=== PATIENT | male | born 1940 | race African-American/Black ===

== ENCOUNTER 2017-05-26 00:56 | Emergency (ER) | payer MEDICARE ==
[~2017-05-26] VITALS: Ht 177.8 cm; Wt 79.4 kg
[~2017-05-26 00:56] MED LIST: AMLO10TA2 PO; HYDR-2758 PO; SITA1TAB11 PO; THEO300T9 PO
--- NOTE | 2017-05-26 01:26 | PHYS DOC ---
Past Medical History Past Medical History: GERD Past Surgical History: Cholecystectomy Additional Past Surgical Histo: prostate surgery Adult General Chief Complaint Chief Complaint: ABDOMINAL PAIN HPI HPI Patient is a 77 year old male comes in with complaints of found gas discomfort in his abdomen that feels like is going up in the middle his chest. It feels similar to past episodes of reflux but he hasn't had that are in a long time. Patient denies any pain of any kind. Patient denies any dysuria or change in bowel movements. Patient denies any vomiting, rashes, fevers, chills. No chest pain or back pain or abdominal pain or leg pain. Patient was seen by his PCP today and evaluated at the office where he received an examining some blood work he was told everything was fine. Review of Systems Review of Systems Constitutional: Denies fever or chills [] HENT: Denies pain Respiratory: Denies cough or shortness of breath [] Cardiovascular: No pain GI: Denies abdominal pain, nausea, vomiting, bloody stools or diarrhea [] : Denies dysuria or hematuria [] Musculoskeletal: Denies back pain or joint pain [] Integument: Denies rash or skin lesions [] Neurologic: Denies headache, focal weakness or sensory changes [] Endocrine: Denies polyuria or polydipsia [] Current Medications Current Medications Current Medications Medications (Trade) Dose Ordered Sig/Ben Start Time Stop Time Status Last Admin Dose Admin Sucralfate (Carafate) 1 gm 1X ONCE 05/26/17 02:45 05/26/17 02:46 DC 05/26/17 03:04 1 GM Allergies Allergies Allergies Coded Allergies Type Severity Reaction Last Updated Verified No Known Drug Allergies 05/17/16 No Physical Exam Physical Exam Constitutional: Well developed, well nourished, no acute distress, non-toxic appearance. [] HENT: Normocephalic, atraumatic, bilateral external ears normal, oropharynx dry , no oral exudates, nose normal. [] Eyes: EOMI, conjunctiva normal, no discharge. [] Neck: Normal range of motion, no tenderness, supple, no stridor. No JVD, no LAD noted, no meningeal signs Cardiovascular:Heart rate regular rhythm, no murmur, equal pulses, normal perfusion Lungs & Thorax: Bilateral breath sounds clear to auscultation, no tachypnea Abdomen: Bowel sounds normal, soft, no tenderness, no masses, no pulsatile masses. [] Skin: Warm, dry, no erythema, no rash. [] Back: No tenderness, no CVA tenderness. [] Extremities: No tenderness, no cyanosis, no DVT ROM intact, no edema. [] Neurologic: Alert and oriented X 3, normal motor function, ambulates with normal gait and without assistance, no focal deficits noted. [] Psychologic: Affect normal, judgement normal, mood normal. [] Current Patient Data Vital Signs Vital Signs Date Time Temp Pulse Resp B/P (MAP) Pulse Ox O2 Delivery O2 Flow Rate FiO2 05/26/17 03:06 74 20 145/80 (101) 100 Room Air 05/26/17 01:15 98.0 98.0 Lab Values Laboratory Tests Test 05/26/17 01:55 05/26/17 03:10 White Blood Count 3.4 x10^3/uL (4.0-11.0) L Red Blood Count 3.03 x10^6/uL (4.30-5.70) L Hemoglobin 11.3 g/dL (13.0-17.5) L Hematocrit 33.5 % (39.0-53.0) L Mean Corpuscular Volume 111 fL (79-100) H Mean Corpuscular Hemoglobin 37 pg (25-35) H Mean Corpuscular Hemoglobin Concent 34 g/dL (31-37) Red Cell Distribution Width 14.1 % (11.5-14.5) Platelet Count 162 x10^3/uL (140-400) Neutrophils (%) (Auto) 45 % (31-73) Lymphocytes (%) (Auto) 39 % (24-48) Monocytes (%) (Auto) 9 % (0-9) Eosinophils (%) (Auto) 6 % (0-3) H Basophils (%) (Auto) 1 % (0-3) Neutrophils # (Auto) 1.6 x10^3uL (1.8-7.7) L Lymphocytes # (Auto) 1.3 x10^3/uL (1.0-4.8) Monocytes # (Auto) 0.3 x10^3/uL (0.0-1.1) Eosinophils # (Auto) 0.2 x10^3/uL (0.0-0.7) Basophils # (Auto) 0.0 x10^3/uL (0.0-0.2) Platelet Estimate Adequate (ADEQUATE) Polychromasia Slight Macrocytosis Mod Sodium Level 137 mmol/L (136-145) Potassium Level 3.7 mmol/L (3.5-5.1) Chloride Level 101 mmol/L (98-107) Carbon Dioxide Level 32 mmol/L (21-32) Anion Gap 4 (6-14) L Blood Urea Nitrogen 13 mg/dL (8-26) Creatinine 1.2 mg/dL (0.7-1.3) Estimated GFR (Cockcroft-Gault) 71.2 BUN/Creatinine Ratio 11 (6-20) Glucose Level 128 mg/dL (70-99) H Calcium Level 8.9 mg/dL (8.5-10.1) Total Bilirubin 0.4 mg/dL (0.2-1.0) Aspartate Amino Transferase (AST) 44 U/L (15-37) H Alanine Aminotransferase (ALT) 40 U/L (16-63) Alkaline Phosphatase 74 U/L (46-116) Troponin I Quantitative < 0.017 ng/mL (0.000-0.055) Total Protein 8.5 g/dL (6.4-8.2) H Albumin 3.8 g/dL (3.4-5.0) Albumin/Globulin Ratio 0.8 (1.0-1.7) L Urine Collection Type Unknown Urine Color Yellow Urine Clarity Clear Urine pH 7.5 Urine Specific [place] <=1.005 Urine Protein Negative mg/dL (NEG-TRACE) Urine Glucose (UA) Negative mg/dL (NEG) Urine Ketones (Stick) Negative mg/dL (NEG) Urine Blood Negative (NEG) Urine Nitrite Negative (NEG) Urine Bilirubin Negative (NEG) Urine Urobilinogen Dipstick 0.2 mg/dL (0.2 mg/dL) Urine Leukocyte Esterase Negative (NEG) Urine RBC Occ /HPF (0-2) Urine WBC 0 /HPF (0-4) Urine Squamous Epithelial Cells Occ /LPF Urine Bacteria 0 /HPF (0-FEW) Laboratory Tests 05/26/17 01:55 Laboratory Tests 05/26/17 01:55 EKG EKG 0148 75, sinus rhythm, no STEMI[] Radiology/Procedures Radiology/Procedures [] Course & Med Decision Making Course & Med Decision Making Pertinent Labs and Imaging studies reviewed. (See chart for details) 0340 pt in nad, agrees to follow up as directed [] James Disclaimer Dragon Disclaimer This electronic medical record was generated, in whole or in part, using a voice recognition dictation system. Departure Departure Impression: Primary Impression: Bloated abdomen Disposition: HOME, SELF-CARE Condition: STABLE Referrals: STEVEN LIVINGSTON MD (PCP) follow up for recheck and re-evaluation in 1-2 days Patient Instructions: Abdominal Pain (Nonspecific) Scripts Sucralfate (CARAFATE) 1 Gm/10 Ml Oral.susp 10 ML PO TID for 5 Days, #1200 ML Prov: Christopher WINTER MD 05/26/17 Christopher WINTER MD May 26, 2017 01:26
[2017-05-26 02:05] LABS: BASO % 1 % (0-3); EOS % 6 % (0-3); HEMATOCRIT 33.5 % (39.0-53.0); HEMOGLOBIN 11.3 g/dL (13.0-17.5); LYMPH # 1.3 x10^3/uL (1.0-4.8); LYMPH % 39 % (24-48); MEAN CORPUSCULAR HEMOGLOBIN 37 pg (25-35); MEAN CORPUSCULAR HGB CONC 34 g/dL (31-37); MEAN CORPUSCULAR VOLUME 111 fL (79-100); MONO % 9 % (0-9); NEUT % 45 % (31-73); PLATELET COUNT 162 x10^3/uL (140-400); RED BLOOD COUNT 3.03 x10^6/uL (4.30-5.70); RED CELL DISTRIBUTION WIDTH 14.1 % (11.5-14.5); WHITE BLOOD COUNT 3.4 x10^3/uL (4.0-11.0)
[2017-05-26 02:16] LABS: CALCIUM 8.9 mg/dL (8.5-10.1); CREATININE 1.2 mg/dL (0.7-1.3); GFR 71.2; POTASSIUM 3.7 mmol/L (3.5-5.1)
[2017-05-26 02:22] LABS: ALBUMIN 3.8 g/dL (3.4-5.0); ALBUMIN/GLOBULIN RATIO 0.8 (1.0-1.7); TOTAL BILIRUBIN 0.4 mg/dL (0.2-1.0); TOTAL PROTEIN 8.5 g/dL (6.4-8.2)
[2017-05-26 02:29] LABS: PLT ESTIMATE ADEQUATE (ADEQUATE)
[2017-05-26 02:30] LABS: POLYCHROMASIA SLIGHT
[2017-05-26] MEDS ORDERED: SUCRALFATE 1 GM/10 ML ORAL.SUSP. PO ONE (02:45)
[2017-05-26 03:22] LABS: BILIRUBIN,URINE NEGATIVE (NEG); GLUCOSE,URINE NEGATIVE (NEG); NITRITE,URINE NEGATIVE (NEG); PH,URINE 7.5; PROTEIN,URINE NEGATIVE (NEG-TRACE); UROBILINOGEN,URINE 0.2 mg/dL (0.2 mg/dL)
[2017-05-26 03:34] LABS: BACTERIA,URINE 0 /HPF (0-FEW); RBC,URINE OCC /HPF (0-2); SQUAMOUS EPITHELIAL CELL,UR OCC /LPF; WBC,URINE 0 /HPF (0-4)
[2017-05-26] MEDS ORDERED: SUCR1ORA5 PO (03:43)
[2017-05-26 03:45] VITALS: BP 128/75
--- NOTE | 2017-05-26 06:24 | EKG ---
[facility] [address] [place] [address] Test Date: 2017-05-26 Test Time: 01:42:09 Pat Name: JEFF VIEIRA Department: Room: Gender: Bioinformatics Support Specialist: : [id number] Requested By: Christopher WINTER Order Number: [id number] Reading MD: Jassi Barr Measurements Intervals [place] Rate: 75 P: 38 UT: 168 QRS: -18 QRSD: 78 T: 35 QT: 390 QTc: 438 Interpretive Statements SINUS RHYTHM Electronically Signed On 06-15-2017 9:16:52 CDT by Jassi Barr
== END 2017-05-26 04:13 | disposition home or self-care (01) ==
LOC: ER 00:56
DX: R14.0 Abdominal distension (gaseous) (principal); K21.9 Gastro-esophageal reflux disease without esophagitis
CPT/HCPCS: 36415; 80053; 81001; 84484; 85025; 93005; 99285-25

== ENCOUNTER → 2017-10-26 | Outpatient (CLI) | payer MEDICARE ==
[~2017-10-26] MED LIST changes: -AMLO10TA2 PO; +CONTRAST GIVEN MC; -HYDR-2758 PO; +IOHEXOL 300 MG/ML 100ML VIAL. IV; -SITA1TAB11 PO; -THEO300T9 PO
== END | disposition home or self-care (01) ==
LOC: CT 10:49
DX: R31.0 Gross hematuria (principal)
CPT/HCPCS: 74178; Q9967

== ENCOUNTER → 2017-11-16 | Day surgery (SDC) | payer MEDICARE ==
[~2017-11-16] MED LIST changes: -CONTRAST GIVEN MC; +DEXAMETHASONE SOD PHOS 20 MG/5 ML VIAL.; +FAMOTIDINE 20 MG/2 ML VIAL; +GLYCOPYRROLATE 1 MG/5 ML VIAL.; -IOHEXOL 300 MG/ML 100ML VIAL. IV; +LIDOCAINE 1% PF 2 ML VIAL. ID; +LIDOCAINE 1% PF 5 ML VIAL.; +MIDAZOLAM HCL/PF 2 MG/2 ML VIAL.; +MORPHINE SULFATE 2 MG/ML DISP.SYRIN. IV; +NEOSTIGMINE 10 MG/10 ML VIAL.; +ONDANSETRON PF 4 MG/2 ML VIAL.; +ONDANSETRON PF 4 MG/2 ML VIAL. IV; +PROCHLORPERAZINE 10 MG/2 ML VIAL. IV; +PROPOFOL 20 ML IV; +ROCURONIUM 50 MG/5 ML VIAL.; +fentaNYL PF VIAL 100 MCG/2 ML VIAL; +fentaNYL PF VIAL 100 MCG/2 ML VIAL IV
[2017-11-16] MEDS: IV RINGERS,LACTATED 1000ML 1,000 ML IV (07:00)
== END | disposition home or self-care (01) ==
LOC: SURG 10:42
DX: C67.9 Malignant neoplasm of bladder, unspecified (principal); I10 Essential (primary) hypertension; J45.909 Unspecified asthma, uncomplicated; E11.9 Type 2 diabetes mellitus without complications; Z87.891 Personal history of nicotine dependence; K21.9 Gastro-esophageal reflux disease without esophagitis; D64.9 Anemia, unspecified; Z85.46 Personal history of malignant neoplasm of prostate; Z98.890 Other specified postprocedural states; Z79.899 Other long term (current) drug therapy
CPT/HCPCS: 51720; 88305; J0690; J1100; J2250; J2405; J2704; J2710; J3010; J3490; J9280; S0028

== ENCOUNTER → 2018-06-27 | Outpatient (CLI) | payer MEDICARE ==
[2017-11-16 17:33] VITALS: BP 152/82
[~2018-06-27] MED LIST changes: +AMLO10TA6 PO; +BUPIVACAINE MPF 0.5% 10 ML VIAL for KCIC. IM ONE; -DEXAMETHASONE SOD PHOS 20 MG/5 ML VIAL.; -FAMOTIDINE 20 MG/2 ML VIAL; -GLYCOPYRROLATE 1 MG/5 ML VIAL.; +HYDR-2758 PO; +HYDR-971 PO; +IOHEXOL 300 MG/ML 50 ML VIAL. INT ART ONE; +LIDOCAINE 1% Multi-Dose 20 ML VIAL. ID ONE; -LIDOCAINE 1% PF 2 ML VIAL. ID; -LIDOCAINE 1% PF 5 ML VIAL.; -MIDAZOLAM HCL/PF 2 MG/2 ML VIAL.; -MORPHINE SULFATE 2 MG/ML DISP.SYRIN. IV; -NEOSTIGMINE 10 MG/10 ML VIAL.; -ONDANSETRON PF 4 MG/2 ML VIAL.; -ONDANSETRON PF 4 MG/2 ML VIAL. IV; -PROCHLORPERAZINE 10 MG/2 ML VIAL. IV; -PROPOFOL 20 ML IV; -ROCURONIUM 50 MG/5 ML VIAL.; +SITA1TAB11 PO; +SUCR1ORA5 PO; +THEO300T9 PO; -fentaNYL PF VIAL 100 MCG/2 ML VIAL; -fentaNYL PF VIAL 100 MCG/2 ML VIAL IV; +methylPREDNISolone ACETATE 40 MG/ML VIAL. INT ART ONE
--- NOTE | 2018-06-27 12:19 | KCIC ---
Therapeutic right hip injection using fluoroscopic guidance 06/27/2018: Indication: Right. hip pain.. Technique: The procedure was explained to the patient as were potential risks. All questions were answered. Informed written consent was obtained. The right hip was prepped and draped in the usual sterile manner. Following administration of local anesthetic, a 22-gauge spinal needle was advanced into the hip joint without difficulty, with care taken to avoid the vascular structures. Stylet was removed and following negative aspiration, a mixture of 5 cc Omnipaque-300, 2 cc (80 mg) Depo-Medrol and 8 cc 0.5% bupivacaine were injected without difficulty. Fluoroscopy demonstrates uniform and satisfactory distribution of the injection through the hip. The needle was removed. There was good hemostasis at the injection site. The patient left in stable condition without immediate complication. The patient was given postprocedural instructions, instructed to contact us or the emergency room if there are any complications. 33 seconds fluoroscopic time. One image. Impression: Successful right hip therapeutic injection. Electronically signed by: Chau Garcia MD (06/27/2018 12:16 PM) [id number]
== END | disposition home or self-care (01) ==
LOC: KCIC 10:35
PROVIDERS: ATTEND Internal Medicine
DX: M16.11 Unilateral primary osteoarthritis, right hip (principal)
CPT/HCPCS: 20610; 77002; J1030; Q9967

== ENCOUNTER → 2019-03-28 | Outpatient (CLI) | payer MEDICARE ==
[2017-11-16 17:33] VITALS: BP 152/82
[~2019-03-28] MED LIST changes: -AMLO10TA6 PO; +AMLO10TA8 PO; -BUPIVACAINE MPF 0.5% 10 ML VIAL for KCIC. IM ONE; -HYDR-2758 PO; +HYDR-2761 PO; +HYDR-3164 PO; -HYDR-971 PO; +IOHEXOL 240 MG/ML 50ML VIAL. PO ONE; +IOHEXOL 300 MG/ML 100ML VIAL. IV ONE; -IOHEXOL 300 MG/ML 50 ML VIAL. INT ART ONE; -LIDOCAINE 1% Multi-Dose 20 ML VIAL. ID ONE; -methylPREDNISolone ACETATE 40 MG/ML VIAL. INT ART ONE
--- NOTE | 2019-03-28 11:01 | KCIC ---
EXAM: CT Abdomen and Pelvis with IV contrast CLINICAL HISTORY: Weight loss, history of bladder cyst, prostate surgery, cholecystectomy. COMPARISON: none TECHNIQUE: Helical CT of the abdomen and pelvis was performed following the administration of intravenous contrast. Axial, coronal and sagittal reformatted images were generated. PQRS compliance statement - One or more of the following individualized dose reduction techniques were utilized for this study: 1. Automated exposure control 2. Adjustment of the mA and/or kV according to patient size 3. Use of iterative reconstruction technique FINDINGS: Lower chest: Lung bases are clear. Coronary calcifications are seen. Abdomen and Pelvis: Diffuse hepatic hypoattenuation may be seen with hepatic steatosis. There has been a cholecystectomy. No biliary ductal dilatation. Pancreas is unremarkable. Adrenal glands are normal. Spleen is unremarkable. Symmetric nephrograms. Subcentimeter hypodense renal lesions in the upper pole the right kidney and lower pole the left kidney are too small to accurately characterize. No hydronephrosis. No hydroureter. Moderate to large volume colonic stool content is seen. Appendix is not seen. No small or large bowel dilatation. No evidence for bowel obstruction. Colonic diverticula are seen. Mildly prominent mesenteric lymph nodes are seen. No abdominal or pelvic lymphadenopathy by size criteria. No abdominal or pelvic ascites. Surgical clips within the pelvis likely from clinically provided history of prior prostate surgery. The partially distended bladder is otherwise unremarkable. The bladder cyst described in the history is not definitively identified. Bones: Severe bilateral hip joint osteoarthritis. Degenerative changes of the spine are seen. IMPRESSION: 1. No abdominal or pelvic lymphadenopathy. 2. Surgical clips within the pelvis likely from prior prostate surgery. 3. Hepatic hypoattenuation may be seen with hepatic steatosis. 4. Moderate to large volume colonic stool content. No bowel obstruction. Electronically signed by: Tommie Luu MD (03/28/2019 10:57 AM) [id number]
== END | disposition home or self-care (01) ==
LOC: KCIC CT 03-27 14:50
PROVIDERS: ATTEND Internal Medicine
DX: K57.30 Diverticulosis of large intestine without perforation or abscess without bleeding (principal); N28.89 Other specified disorders of kidney and ureter; I25.10 Atherosclerotic heart disease of native coronary artery without angina pectoris; M16.0 Bilateral primary osteoarthritis of hip; J45.909 Unspecified asthma, uncomplicated; I10 Essential (primary) hypertension; Z90.49 Acquired absence of other specified parts of digestive tract; Z87.891 Personal history of nicotine dependence
CPT/HCPCS: 74177; Q9966; Q9967

== ENCOUNTER → 2020-03-17 | Outpatient (CLI) | payer MEDICARE ==
[2017-11-16 17:33] VITALS: BP 152/82
[~2020-03-17] MED LIST changes: +BUPIVACAINE MPF 0.5% 10 ML VIAL for KCIC. IM ONE; -IOHEXOL 240 MG/ML 50ML VIAL. PO ONE; -IOHEXOL 300 MG/ML 100ML VIAL. IV ONE; +IOHEXOL 300 MG/ML 50 ML VIAL. INT ART ONE; +LIDOCAINE 1% Multi-Dose 20 ML VIAL. ID ONE; +THEO300T26 PO; -THEO300T9 PO; +methylPREDNISolone ACETATE 40 MG/ML VIAL. INT ART ONE
--- NOTE | 2020-03-18 11:42 | KCIC ---
Therapeutic right hip injection using fluoroscopic guidance: Indication: Chronic right hip pain. Technique: The procedure was explained to the patient as were potential risks including bleeding and infection and allergic reaction. All questions were answered. Informed written consent was obtained. A timeout was performed which confirmed the name of the patient and the date of and the type of procedure and the side of the procedure. Allergies to medications were reviewed. Physician order was confirmed. An appropriate skin tarah was made using fluoroscopic guidance. The right hip was prepped and draped in the usual sterile manner. Following administration of local anesthetic, a 22-gauge spinal needle was advanced into the right hip joint without difficulty, with care taken to avoid the vascular structures. Stylet was removed and following negative aspiration, a mixture of 4 cc Omnipaque-300, 2 cc (80 mg) Depo-Medrol and 4 cc 0.5% bupivacaine and 4 cc of 1% lidocaine was injected without difficulty. Fluoroscopy demonstrates uniform and satisfactory distribution of the injection throughout the right hip joint. Fluoroscopic spot images were performed. The needle was removed. There was good hemostasis at the injection site. The patient left in stable condition without immediate complication. The patient was given postprocedural instructions and instructed to contact us or the emergency room if there are any complications. Total fluoroscopic time: 26 seconds Total fluoroscopic spot views: 2. Impression: Uncomplicated therapeutic right hip injection. Electronically signed by: Franki De La Cruz MD (03/18/2020 11:39 AM) [id number]
== END | disposition home or self-care (01) ==
LOC: KCIC 14:32
PROVIDERS: ATTEND Internal Medicine
DX: M25.551 Pain in right hip (principal); Z79.899 Other long term (current) drug therapy
CPT/HCPCS: 20610; 77002; J1030; J3490; Q9967

== ENCOUNTER → 2021-01-07 | Outpatient (CLI) | payer MEDICARE ==
[2017-11-16 17:33] VITALS: BP 152/82
[~2021-01-07] MED LIST changes: +AMLO-187 PO; -AMLO10TA8 PO; -BUPIVACAINE MPF 0.5% 10 ML VIAL for KCIC. IM ONE; -IOHEXOL 300 MG/ML 50 ML VIAL. INT ART ONE; -LIDOCAINE 1% Multi-Dose 20 ML VIAL. ID ONE; -methylPREDNISolone ACETATE 40 MG/ML VIAL. INT ART ONE
[2021-01-07 12:49] LABS: BASO % 0 % (0-3); EOS # 0.2 x10^3/uL (0.0-0.7); EOS % 11 % (0-3); HEMATOCRIT 23.4 % (39.0-53.0); HEMOGLOBIN 8.1 g/dL (13.0-17.5); LYMPH # 0.8 x10^3/uL (1.0-4.8); LYMPH % 42 % (24-48); MEAN CORPUSCULAR HEMOGLOBIN 45 pg (25-35); MEAN CORPUSCULAR HGB CONC 35 g/dL (31-37); MEAN CORPUSCULAR VOLUME 129 fL (79-100); MONO # 0.1 x10^3/uL (0.0-1.1); MONO % 6 % (0-9); NEUT # 0.8 x10^3/uL (1.8-7.7); NEUT % 41 % (31-73); PLATELET COUNT 88 x10^3/uL (140-400); RED BLOOD COUNT 1.82 x10^6/uL (4.30-5.70); RED CELL DISTRIBUTION WIDTH 15.3 % (11.5-14.5)
[2021-01-07 13:23] LABS: PLT ESTIMATE DECREASED (ADEQUATE)
[2021-01-07 13:24] LABS: ANISOCYTOSIS MOD
== END ==
LOC: ONCLAB 12:00
PROVIDERS: ATTEND Internal Medicine Hematology & Oncology
DX: D51.9 Vitamin B12 deficiency anemia, unspecified (principal)
CPT/HCPCS: 82607; 82746; 83921; 85025

== ENCOUNTER → 2021-02-25 | Outpatient (CLI) | payer MEDICARE ==
[2017-11-16 17:33] VITALS: BP 152/82
[2021-02-25 11:32] LABS: BASO % 1 % (0-3); EOS # 0.1 x10^3/uL (0.0-0.7); EOS % 3 % (0-3); HEMOGLOBIN 11.3 g/dL (13.0-17.5); LYMPH # 1.1 x10^3/uL (1.0-4.8); LYMPH % 27 % (24-48); MEAN CORPUSCULAR HEMOGLOBIN 37 pg (25-35); MEAN CORPUSCULAR HGB CONC 34 g/dL (31-37); MEAN CORPUSCULAR VOLUME 110 fL (79-100); MONO # 0.5 x10^3/uL (0.0-1.1); MONO % 14 % (0-9); NEUT # 2.2 x10^3/uL (1.8-7.7); NEUT % 55 % (31-73); PLATELET COUNT 243 x10^3/uL (140-400); RED BLOOD COUNT 3.01 x10^6/uL (4.30-5.70); RED CELL DISTRIBUTION WIDTH 18.7 % (11.5-14.5); WHITE BLOOD COUNT 3.9 x10^3/uL (4.0-11.0)
[2021-02-28 17:14] LABS: METHYLMALONIC ACID 4509 nmol/L (0-378)
== END ==
LOC: ONCLAB 11:11
PROVIDERS: ATTEND Internal Medicine Hematology & Oncology
DX: D51.9 Vitamin B12 deficiency anemia, unspecified (principal)
CPT/HCPCS: 36415; 82607; 82746; 83921; 85025

== ENCOUNTER → 2021-03-04 | Outpatient (CLI) | payer MEDICARE ==
[2017-11-16 17:33] VITALS: BP 152/82
[2021-03-04 12:33] LABS: FECAL OB PT NEGATIVE (NEG)
[2021-03-04 12:34] LABS: FECAL OB PT NEGATIVE (NEG)
[2021-03-04 12:34] LABS: FECAL OB PT NEGATIVE (NEG)
== END ==
LOC: ONCLAB 11:44
PROVIDERS: ATTEND Physician Assistant
DX: D51.9 Vitamin B12 deficiency anemia, unspecified (principal)
CPT/HCPCS: 82274

== ENCOUNTER → 2021-03-25 | Outpatient (CLI) | payer MEDICARE ==
[2017-11-16 17:33] VITALS: BP 152/82
[2021-03-25 10:28] LABS: BASO % 1 % (0-3); EOS # 0.2 x10^3/uL (0.0-0.7); EOS % 5 % (0-3); HEMATOCRIT 35.9 % (39.0-53.0); HEMOGLOBIN 12.1 g/dL (13.0-17.5); LYMPH % 27 % (24-48); MEAN CORPUSCULAR HEMOGLOBIN 35 pg (25-35); MEAN CORPUSCULAR HGB CONC 34 g/dL (31-37); MEAN CORPUSCULAR VOLUME 103 fL (79-100); MONO # 0.5 x10^3/uL (0.0-1.1); MONO % 12 % (0-9); NEUT # 2.2 x10^3/uL (1.8-7.7); NEUT % 56 % (31-73); PLATELET COUNT 245 x10^3/uL (140-400); RED BLOOD COUNT 3.47 x10^6/uL (4.30-5.70); RED CELL DISTRIBUTION WIDTH 14.6 % (11.5-14.5); WHITE BLOOD COUNT 3.9 x10^3/uL (4.0-11.0)
== END ==
LOC: ONCLAB 09:39
PROVIDERS: ATTEND Internal Medicine Hematology & Oncology
DX: D51.9 Vitamin B12 deficiency anemia, unspecified (principal)
CPT/HCPCS: 36415; 82607; 82746; 85025

== ENCOUNTER → 2021-07-09 | Outpatient (CLI) | payer MEDICARE ==
[2017-11-16 17:33] VITALS: BP 152/82
[2021-07-09 11:26] LABS: BASO % 1 % (0-3); EOS # 0.3 x10^3/uL (0.0-0.7); EOS % 6 % (0-3); HEMATOCRIT 35.7 % (39.0-53.0); HEMOGLOBIN 11.9 g/dL (13.0-17.5); LYMPH # 1.3 x10^3/uL (1.0-4.8); LYMPH % 26 % (24-48); MEAN CORPUSCULAR HEMOGLOBIN 33 pg (25-35); MEAN CORPUSCULAR HGB CONC 33 g/dL (31-37); MEAN CORPUSCULAR VOLUME 100 fL (79-100); MONO # 0.5 x10^3/uL (0.0-1.1); MONO % 11 % (0-9); NEUT # 2.9 x10^3/uL (1.8-7.7); NEUT % 57 % (31-73); PLATELET COUNT 266 x10^3/uL (140-400); RED BLOOD COUNT 3.55 x10^6/uL (4.30-5.70); RED CELL DISTRIBUTION WIDTH 12.7 % (11.5-14.5); WHITE BLOOD COUNT 5.1 x10^3/uL (4.0-11.0)
== END ==
LOC: ONCLAB 10:57
PROVIDERS: ATTEND Internal Medicine Hematology & Oncology
DX: D51.9 Vitamin B12 deficiency anemia, unspecified (principal); Z79.899 Other long term (current) drug therapy
CPT/HCPCS: 82306; 82607; 83921; 85025